=== PATIENT | male | born 1960 | race Caucasian/White ===

== ENCOUNTER 2023-04-25 06:52 | Day surgery (SDC) | payer OTHER ==
[~2023-04-25] VITALS: Ht 180.3 cm; Wt 71.3 kg
[2023-04-25] MEDS ORDERED: propofoL 200 MG/20 ML VIAL As Ordered ONE (06:58)
[2023-04-25] MEDS ORDERED: LIDOCAINE 2% 100MG/5ML SDV (FOR ANES.) As Ordered ONE (06:58)
[2023-04-25] MEDS: NS 1,000 ML IV ONE (07:21)
[2023-04-25] MEDS ORDERED: GLYCOPYRROLATE INJ 0.2 MG/ML 2 ML VIAL As Ordered ONE (07:44)
[2023-04-25 07:54] VITALS: TEMP 97.4
[2023-04-25 08:06] VITALS: BP 131/77; O2SAT 95
== END 2023-04-25 08:15 | disposition home or self-care (01) ==
LOC: M OPP 06:52
PROVIDERS: ATTEND Surgery
DX: Z12.11 Encounter for screening for malignant neoplasm of colon (principal); Z63.5 Disruption of family by separation and divorce; Z79.51 Long term (current) use of inhaled steroids

== ENCOUNTER → 2024-03-20 | Outpatient (CLI) | payer OTHER | LOC: M PLAIMG 12:20 | PROVIDERS: ATTEND Internal Medicine | DX: R09.02 Hypoxemia (principal); R05.3 Chronic cough; J47.9 Bronchiectasis, uncomplicated; J84.10 Pulmonary fibrosis, unspecified ==